=== PATIENT | male | born 1985 | race Caucasian/White ===

== ENCOUNTER → 2016-05-29 | Emergency (ER) | payer OTHER ==
[~2016-05-29] MED LIST: Haloperidol INJ IV/IM* 5 MG/ML AMP ONE; Ketorolac INJ* 60 MG/2 ML VIAL IM ONE; diPHENhydraMINE IV* 50 MG/ML 1 ml VIAL (BENADRYL) ONE; oxyCODONE/Acetamin 5/325 MG* TAB PO ONE
[2016-05-29 10:55] VITALS: BP 184/117
--- NOTE | 2016-05-29 11:48 | ED ---
Lower Extremity - HPI Summary HPI Summary: Patient has a history of gout and thinks he is having a flare in this left knee. He began having discomfort two days ago, so he took his endomethacin and started using his crutch to take weight off of it, which normally helps. His pain has gotten worse and today he was unable to bear weight at all. His pain awoke him from sleep. He denies known injury to the knee. He did go skiing last week and had a few crashes, but did not have any knee pain or inability to function related to these. He had a similar episode of pain in his right knee two years ago, that feels the same. He denies redness, fever, or warmth in the knee. He has pain with movement and extreme swelling. No N/T. - History of Current Complaint Chief Complaint: EDExtremityLower Stated Complaint: LT KNEE SWOLLEN Time Seen by Provider: 05/29/16 10:58 Hx Obtained From: Patient, Family/Beater Engineer Mechanism Of Injury: Unknown Onset of Pain: Days - 2 Onset/Duration: Worse Since - two days ago Severity Initially: Mild Severity Currently: Severe Pain Intensity: 9 Timing: Constant Location: Is Discrete @ - left knee Associated Signs And Symptoms: Positive: Swelling, Knee Pain Aggravating Factor(s): Ambulation, Movement Alleviating Factor(s): Nothing Able to Bear Weight: No - Allergies/Home Medications Allergies/Adverse Reactions: Allergies Allergy/AdvReac Type Severity Reaction Status Date / Time No Known Allergies Allergy Verified 05/29/16 10:48 PMH/Surg Hx/FS Hx/Imm Hx Musculoskeletal History: Reports: Hx Gout Infectious Disease History: No Infectious Disease History: Denies: Traveled Outside the [place] in Last 30 Days - Family History Known Family History: Positive: None - Social History Occupation: Employed Full-time Lives: With Family Alcohol Use: Rare Substance Use Type: Reports: None Smoking Status (MU): Never Smoked Tobacco Review of Systems Negative: Fever, Chills Positive: Myalgia, Decreased ROM, Edema - left knee Negative: Bruising Negative: Paresthesia, Numbness All Other Systems Reviewed And Are Negative: Yes Physical Exam Triage Information Reviewed: Yes Vital Signs On Initial Exam: Initial Vitals Temp Pulse Resp BP Pulse Ox 99.0 F 108 16 184/117 99 05/29/16 10:48 05/29/16 10:48 05/29/16 10:48 05/29/16 10:48 05/29/16 10:48 Vital Signs Reviewed: Yes Appearance: Positive: Well-Appearing, Pain Distress, Obese Skin: Positive: Warm, Skin Color Reflects Adequate Perfusion, Dry, Soft. Negative: Erythema @ Head/Face: Positive: Normal Head/Face Inspection Eyes: Positive: EOMI, JESSI, Conjunctiva Clear ENT: Positive: Hearing grossly normal Respiratory/Lung Sounds: Positive: Breath Sounds Present Cardiovascular: Positive: RRR Musculoskeletal: Positive: Limited @ - extension to 10, flexion to 30 with pain , Pain @ - TTP med/lat joint lines, with patellar manipulation and in popliteal fossa; non-tender MCL/LCL, Edema Left - large effusion of left knee Neurological: Positive: Sensory/Motor Intact, Alert, Oriented to Person Place, Time, NV Bundle Intact Distally, Unable to Assess Gait Psychiatric: Positive: Affect/Mood Appropriate AVPU Assessment: Alert Procedures - Procedure Summary Procedure Summary: Patient presents with possible septic left knee. The knee was prepped with betadine, and with sterile technique injected with 2% lidocaine at the site of potential aspiration. The area was then aspirated with a 30g needle and 20cc syringe. Approximately 15 cc of joint fluid was aspirated and capped with a sterile cap. The patient tolerated the procedure well. The area was cleansed with alcohol and dressed with a bandaid. Diagnostics - Vital Signs Vital Signs Temp Pulse Resp BP Pulse Ox 05/29/16 10:48 99.0 F 108 16 184/117 99 - Laboratory Result Diagrams: 05/29/16 11:51 05/29/16 11:51 Lab Statement: Any lab studies that have been ordered have been reviewed, and results considered in the medical decision making process. - Radiology No standard instances Xray Interpretation: No Acute Changes Radiology Interpretation Completed By: Radiologist Lower Extremity Course/Dx - Diagnoses Differential Diagnosis/HQI/PQRI: Positive: Arthritis, Cellulitis, Contusion, Fracture (Closed), Sprain, Strain Provider Diagnoses: Gout attack Discharge - Discharge Plan Condition: Stable Disposition: HOME Prescriptions: oxyCODONE/Acetamin 5/325 MG* [Percocet 5/325 TAB*] 1 tab PO Q6H PRN #12 tab MDD 4 PRN Reason: Pain Patient Education Materials: Gout (ED) Referrals: Regulo Clemens MD [Medical Doctor] - Additional Instructions: Please take your endomethacin as prescribed and use Percocet for pain as needed. Elevate your leg equal to, or above your heart and apply ice to decrease swelling. Use the crutches until your pain allows your to walk pain free. Follow-up with your primary care provider in 3-5 days for re-evaluation. Return to the emergency department if your symptoms worsen. Addendum entered and electronically signed by Doreen Dick PA 06/01/16 07: 07: ED Addendum Addendum: Aspiration of knee was positive to anaerobic gram positive cocci with clusters negative for MRSA. Will treat with bactrim twice a day for 14 days. called patient and informed of plan. patient understands and will follow up with his primary. Addendum entered and electronically signed by Joseph Rain PA 06/01/16 09:30: ED Addendum Addendum: Patient's synovial fluid results were discussed with Dr. Latif, the orhtopedist typewriters functional tester, and she did not think the results confirmed a septic joint due to the WBC count being less that 50,000. Addendum entered and electronically signed by Doreen Dick PA 06/01/16 10: 00: ED Addendum Addendum: Called pharmacy and changed it to keflex 500 mg bid for 14 days Addendum entered and electronically signed by Mikala Cox PA 06/04/16 15:58: ED Addendum Addendum: Pt c&s returned - appears pt was started on keflex which is appropriate tx for this organism. No change in meds at this time. F/u as directed.
[2016-05-29 11:56] LABS: Hematocrit 43 % (42-52); Hemoglobin 14.4 g/dl (14.0-18.0); Mean Corpuscular HGB Conc 34 g/dl (31-36); Mean Corpuscular Hemoglobin 27 pg (27-31); Mean Corpuscular Volume 81 fL (80-94); Mean Platelet Volume 9 um3 (7.4-10.4); Red Blood Count 5.26 10^6/ul (4.0-5.4); Red Cell Distribution Width 14 % (10.5-15); White Blood Count 9.8 10^3/ul (3.5-10.8)
[2016-05-29 12:11] LABS: Albumin 4.4 g/dL (3.2-5.2); BUN/Creatinine Ratio 15.7 (8-20); C Reactive Protein 85.51 mg/L (< 5.00); Calcium 9.6 mg/dL (8.6-10.3); EGFR African American 138.1 (>60); EGFR Non-African American 107.4 (>60); Globulin 3.5 g/dL (2-4); Potassium 3.9 mmol/L (3.5-5.0); Total Bilirubin 0.6 mg/dL (0.2-1.0); Total Protein 7.9 g/dL (6.4-8.9)
--- NOTE | 2016-05-29 13:13 | RAD ---
INDICATION: Left knee pain and swelling COMPARISON: None TECHNIQUE: AP, lateral, tunnel, and sunrise were obtained. FINDINGS: There are no acute osseous findings. The knee articulates normally. There is a large suprapatellar joint effusion. IMPRESSION: JOINT EFFUSION.
[2016-05-29 13:40] LABS: Body Fluid WBC 31631 /mcL
[2016-05-29 13:46] LABS: Body Fluid Appearance Cloudy; Body Fluid Total Cells Counted 100
== END | disposition home or self-care (01) ==
LOC: ED 10:41
DX: M10.9 Gout, unspecified (principal)
CPT/HCPCS: 20610; 36415; 80053; 84550; 85025; 86140; 87040; 87077; 87186; 87205; 87640; 87641; 89051; 89060; 99282; A9270-GY; J1200; J1630; J1885